=== PATIENT | male | born 1955 | race Caucasian/White ===

== ENCOUNTER → 2018-03-03 | Day surgery (SDC) | payer OTHER, MEDICARE ==
[~2018-03-03] VITALS: Ht 177.8 cm; Wt 90.7 kg
[~2018-03-03] MED LIST: DULOXETINE HYDR60 MG PO; MASON NATURAL2000 IU PO; METFORMIN ER500 MG PO; PERCOCET 5-3251 EACH PO; SUMATRIPTAN SUC50 MG PO; VICODIN7.5-300 PO; VICTOZA6 MG/ML SC; VITAB121000 PO; ZOFRAN ODT4 MG PO
--- NOTE | 2018-03-10 13:26 | Operative Report ---
Operative/Inv Procedure Report Surgery Date: 03/03/18 Name of Procedure: Excision of deep left axillary lymph node Pre-Operative Diagnosis: History of lymphoma, new lymphadenopathy Post-Operative Diagnosis: Same Estimated Blood Loss: scant Surgeon/Mechanical Car Checker: Allie ENRIQUEZ,Dwayne Ferreira Anesthesia: local monitored anesthesi Operative/Procedure Note Note: Initially patient was positioned supine after successful induction of Mac local his left arm was abducted and left axilla and chest were prepped prepped and draped in usual sterile fashion we aimed a transverse incision following the skin lines just posterior to the border of the pectoralis 3 cm long first infiltrated local anesthetic the mid incision with a 15 blade deepened it aiming towards underneath pectoralis coming through the clavipectoral fascia and then deeper, finding a mostly fatty replaced lymph node as seen on the CT scan we excised it mostly with cautery paying care to ensure that the pedicle vasculature was controlled there were a few smaller lymph nodes next to it that were included within the specimen, the area was checked for bleeding and irrigated and closed back up in layers using interrupted 3-0 Vicryl sutures deep and running subcuticular for the skin itself, followed by Mastisol Steri-Strips Telfa and Tegaderm. EBL minimal lap and sponge counts correct wound expectancy clean IV fluids crystalloid complications none patient tolerated the procedure well was awakened and returned to recovery room in satisfactory condition.
== END ==
LOC: STS 01:52
DX: R59.0 Localized enlarged lymph nodes (principal); Z85.72 Personal history of non-Hodgkin lymphomas; I10 Essential (primary) hypertension; E11.9 Type 2 diabetes mellitus without complications; Z79.84 Long term (current) use of oral hypoglycemic drugs; K21.9 Gastro-esophageal reflux disease without esophagitis
CPT/HCPCS: J0690; J2250